=== PATIENT | female | born 1990 | race Two or more races ===

== ENCOUNTER 2022-11-16 03:21 | Emergency (ER) | payer MEDICAID, OTHER ==
[~2022-11-16] VITALS: Ht 157.5 cm; Wt 60.8 kg
--- NOTE | 2022-11-16 04:15 | NUR ---
BIBS WITH CC OF EPIGASTRIC PAIN (GASSY) SINCE 1AM. NO MEDS TAKEN, PAIN SCALE 8/10. PT PLACED COMFORTABLY IN BED, VITALS CHECKED.
--- NOTE | 2022-11-16 04:20 | NUR ---
URINE SPECIMEN SENT TO LAB
[2022-11-16] MEDS ORDERED: MAG HYDROX/AL HYDROX/SIMETH 30 ML UDC ONE (04:42)
[2022-11-16] MEDS ORDERED: LIDOCAINE VISCOUS 2% UD 15 ML UDC ONE (04:42)
[2022-11-16] MEDS ORDERED: DICYCLOMINE HCL 10 MG CAPSULE PO ONE ×2 (04:42→05:00)
[2022-11-16] MEDS ORDERED: METOCLOPRAMIDE HCL 10 MG TABLET ONE (04:43)
[2022-11-16] MEDS ORDERED: MAG HYDROX/AL HYDROX/SIMETH 30 ML UDC PO ONE (05:00)
[2022-11-16] MEDS ORDERED: LIDOCAINE VISCOUS 2% UD 15 ML UDC MM ONE (05:00)
[2022-11-16] MEDS ORDERED: METOCLOPRAMIDE HCL 10 MG TABLET PO ONE (05:00)
[2022-11-16 05:01] LABS: BILIRUBIN,URINE NEGATIVE (NEGATIVE); COLOR,URINE YELLOW (YELLOW); LEUKOCYTE ESTERASE ,URINE NEGATIVE (NEGATIVE); NITRITE, URINE NEGATIVE (NEGATIVE); PROTEIN,URINE NEGATIVE (NEGATIVE); UGLUCOSE NEGATIVE (NEGATIVE); UROBILINOGEN,URINE 0.2 EU/dL (0.2)
[2022-11-16 05:02] LABS: BACTERIA,URINE Rare /HPF (None Seen); MUCUS,URINE Few /LPF (None Seen); SQUAMOUS EPITHELIAL CELL,UR Moderate /HPF (None Seen); WBC,URINE 0-2 /HPF (0-3)
[2022-11-16] MEDS ORDERED: DICY10CA37 PO (05:25)
[2022-11-16] MEDS ORDERED: METO-295 PO (05:25)
[2022-11-16] MEDS ORDERED: MAG-55 PO (05:25)
--- NOTE | 2022-11-16 05:29 | NUR ---
Patient discharged to home in stable condition. Written and verbal after care instructions given. Patient verbalizes understanding of instruction.
[2022-11-16 05:34] VITALS: BP 118/64
== END 2022-11-16 06:16 | disposition home or self-care (01) ==
LOC: ER 03:39
DX: R10.13 Epigastric pain (principal)
CPT/HCPCS: 99284; 84703; 81001; J8597